=== PATIENT | male | born 1990 | race African-American/Black ===

== ENCOUNTER 2018-04-12 14:41 | Emergency (ER) | payer SELFPAY ==
[2018-04-12 14:49] VITALS: BP 130/70
--- NOTE | 2018-04-12 15:14 | RAD ---
Three-view right ankle radiographs 04/12/2018 CLINICAL HISTORY: Right ankle pain post fall. AP, lateral and oblique digital radiographs of the right ankle were obtained portably. The right ankle mortise is intact. No fracture or dislocation of the right ankle is seen. Soft tissue swelling is seen adjacent to the medial malleolus of the right ankle. IMPRESSION: No fracture or dislocation of the right ankle is seen. Electronically signed by: Abad Sylvester MD (04/12/2018 3:11 PM) [facility]
[2018-04-12] MEDS ORDERED: HYDROcodone/APAP 5/325MG 1 TAB TABLET PO ONE (15:15)
[2018-04-12] MEDS ORDERED: NAPR-683 PO (15:33)
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
== END 2018-04-12 15:43 | disposition home or self-care (01) ==
LOC: ER 14:41
DX: S93.401A Sprain of unspecified ligament of right ankle, initial encounter (principal); F12.10 Cannabis abuse, uncomplicated; W17.89XA Other fall from one level to another, initial encounter; Y93.39 Activity, other involving climbing, rappelling and jumping off; Y99.8 Other external cause status; Y92.89 Other specified places as the place of occurrence of the external cause
CPT/HCPCS: 73610; 99284; L4350

== ENCOUNTER 2019-07-03 17:25 | Emergency (ER) | payer SELFPAY ==
[~2019-07-03] VITALS: Ht 167.6 cm; Wt 61.2 kg
[~2019-07-03 17:25] MED LIST: NAPR-683 PO
[2019-07-03 17:34] VITALS: BP 136/84
[2019-07-03] MEDS ORDERED: diphenhydrAMINE 50 MG/ML VIAL IVP ONE (17:45)
[2019-07-03] MEDS ORDERED: methylPREDNISolone SOD SUCC PF 125 MG/2 ML VIAL. IV ONE (17:45)
--- NOTE | 2019-07-03 18:02 | PHYS DOC ---
Past History Past Medical History: No Pertinent History Past Surgical History: Other Alcohol Use: Occasionally Drug Use: Marijuana Adult General Chief Complaint Chief Complaint: SKIN RASH/ABSCESS HPI HPI 28-year-old male presents via ambulance for rash on his lower arms. The patient states it started 2 days ago, but is not really sure. He told the nurse it was a cheek, but does not tell me that it itches. He says he thinks his dog is involved somehow. He denies being scratched or bit. He tells me his dog is acting weird. He has noticed a few bumps on his bilateral forearms and is co ncerned it is allergic reaction. He is not allergic to anything that he knows of. No new exposures. Eyes fever or chills. Review of Systems Review of Systems Constitutional: Denies fever or chills [] Eyes: Denies change in visual acuity, redness, or eye pain [] HENT: Denies nasal congestion or sore throat [] Respiratory: Denies cough or shortness of breath [] Cardiovascular: No additional information not addressed in HPI [] GI: Denies abdominal pain, nausea, vomiting, bloody stools or diarrhea [] : Denies dysuria or hematuria [] Musculoskeletal: Denies back pain or joint pain [] Integument: Urticaria[] Neurologic: Denies headache, focal weakness or sensory changes [] Endocrine: Denies polyuria or polydipsia [] All other systems were reviewed and found to be within normal limits, except as documented in this note. Current Medications Current Medications Current Medications Medications (Trade) Dose Ordered Sig/Devorah Start Time Stop Time Status Last Admin Dose Admin Diphenhydramine HCl (Benadryl) 25 mg 1X ONCE 07/03/19 17:45 07/03/19 17:46 DC 07/03/19 17:47 25 MG Methylprednisolone Sodium Succinate (SOLU-Medrol 125MG VIAL) 125 mg 1X ONCE 07/03/19 17:45 07/03/19 17:46 DC 07/03/19 17:47 125 MG Allergies Allergies Allergies Coded Allergies Type Severity Reaction Last Updated Verified No Known Drug Allergies 05/18/15 No Physical Exam Physical Exam Constitutional: Well developed, well nourished, no acute distress, non-toxic appearance. [] HENT: Normocephalic, atraumatic, bilateral external ears normal, oropharynx moist, no oral exudates, nose normal. [] Eyes: PERRLA, EOMI, conjunctiva normal, no discharge. [] Neck: Normal range of motion, no tenderness, supple, no stridor. [] Cardiovascular:Heart rate regular rhythm, no murmur [] Lungs & Thorax: Bilateral breath sounds clear to auscultation [] Abdomen: Bowel sounds normal, soft, no tenderness, no masses, no pulsatile masses. [] Skin: Patient appears to have very mild urticaria on the right forearm and left forearm. I only see a few scattered areas. No confluent rash. No erythema or warmth.[] Back: No tenderness, no CVA tenderness. [] Extremities: No tenderness, no cyanosis, no clubbing, ROM intact, no edema. [] Neurologic: Alert and oriented X 3, normal motor function, normal sensory function, no focal deficits noted. [] Psychologic: Affect scattered, mood anxious[] Current Patient Data Vital Signs Vital Signs Date Time Temp Pulse Resp B/P (MAP) Pulse Ox O2 Delivery O2 Flow Rate FiO2 07/03/19 17:34 98.4 90 18 97 Room Air EKG EKG [] Radiology/Procedures Radiology/Procedures [] Course & Med Decision Making Course & Med Decision Making Pertinent Labs and Imaging studies reviewed. (See chart for details) The patient has had no difficulty breathing. I have given him 125 of Solu-Medrol IV as well as 25 mg of Benadryl IV. I do not see any other signs of allergic reaction. I believe the patient can be safely discharged. He continues to have pruritus he take Benadryl as needed every 6 hours. He is stable for discharge at this time. [] Dragon Disclaimer Dragon Disclaimer This electronic medical record was generated, in whole or in part, using a voice recognition dictation system. Departure Departure: Impression: Primary Impression: Urticaria Disposition: HOME, SELF-CARE Condition: STABLE Referrals: PCP,MIRANDA (PCP) Patient Instructions: Allergies, Generic Additional Instructions: If you continue to have itching, you can take 25 mg of Benadryl every 6 hours as needed. KAYA BECERRIL DO Jul 03, 2019 18:02
== END 2019-07-03 18:05 | disposition home or self-care (01) ==
LOC: ER 17:25
DX: L50.9 Urticaria, unspecified (principal)
CPT/HCPCS: 96374; 96375; 99284; J1200; J2930

== ENCOUNTER 2021-05-05 07:34 | Emergency (ER) | payer SELFPAY ==
[~2021-05-05] VITALS: Ht 167.6 cm; Wt 77.2 kg
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
[2021-05-05] MEDS ORDERED: DIPH,PERTUSS(ACELL),TET VAC/PF 0.5 ML SYRINGE. VAX IM ONE ×2 (08:56→09:00)
[2021-05-05 09:00] VITALS: BP 124/82
[2021-05-05] MEDS ORDERED: NEOMY/BACITR/POLYMYXIN OINT PACKET. TP ONE (09:00)
== END 2021-05-05 09:00 | disposition home or self-care (01) ==
LOC: ER 07:34
DX: S31.010A Laceration without foreign body of lower back and pelvis without penetration into retroperitoneum, initial encounter (principal); F12.10 Cannabis abuse, uncomplicated; Z59.0 Homelessness; X58.XXXA Exposure to other specified factors, initial encounter; Y93.89 Activity, other specified; Y92.89 Other specified places as the place of occurrence of the external cause; Y99.8 Other external cause status
CPT/HCPCS: 12001; 70450; 90471; 90715; 99284-25

== ENCOUNTER 2021-05-19 12:28 | Emergency (ER) | payer SELFPAY ==
[~2021-05-19] VITALS: Ht 167.6 cm; Wt 77.2 kg
[2021-05-19] MEDS ORDERED: LORazepam 1 MG TABLET PO ONE (12:45)
--- NOTE | 2021-05-19 12:56 | PHYS DOC ---
Past History Past Medical History: No Pertinent History (JURGEN WEST APRN) Past Surgical History: No Surgical History (JURGEN WEST APRN) Alcohol Use: Heavy Drug Use: Marijuana (JURGEN WEST APRN) Adult General Chief Complaint Chief Complaint: DIZZY/LIGHT HEADED HPI HPI Patient is a 30-year-old male who presents to the emergency department via EMS [employer] transport with a chief complaint of dizziness after a panic attack. Patient states he is homeless and has been staying in a local [facility]ci, was asked to leave last night, states he stayed with an acquaintance overnight and left at approximately 10 AM, has been walking around outside in the heat stating that his mind has been racing with thoughts of being kicked out, being homeless, having court dates coming up, being on probation, being unemployed, and receiving negative feedback. Patient states that this triggered a panic attack in which he called EMS for transfer to the emergency department. Patient states he has been seen by the local [facility] and was diagnosed with PTSD, patient reports he has an additional appointment on 22 May 2021 and also 25 May 2021 with the [facility] counselor for evaluation to start on medications. Patient denies chest pain, shortness of breath, fever or chills, chest congestion or nasal congestion. Patient denies nausea, vomiting, diarrhea or constipation. Patient denies loss of consciousness, or passing out. Patient reports cigarette smoking, occasional alcohol drinking, reports smoking marijuana this morning. Patient denies any other physical complaints or physical concerns. (JURGEN WEST APRN) Review of Systems Review of Systems 14 body systems of review of systems have been reviewed. See HPI for pertinent positives and negative responses, otherwise all other systems are negative, nonpertinent or noncontributory. (JURGEN WEST APRN) Current Medications Current Medications Current Medications Medications (Trade) Dose Ordered Sig/Devorah Start Time Stop Time Status Last Admin Dose Admin Lorazepam (Ativan) 1 mg 1X ONCE 05/19/21 12:45 05/19/21 12:46 DC (JURGEN WEST APRN) Allergies Allergies Allergies Coded Allergies Type Severity Reaction Last Updated Verified No Known Drug Allergies 05/05/21 No (JURGEN WEST APRN) Physical Exam Physical Exam Constitutional: Well developed, well nourished, no acute distress, non-toxic appearance. 30-year-old male in no apparent distress has 18-gauge IV with LR running at wide open started prior to arrival by EMS. HENT: Normocephalic, atraumatic. Eyes: Conjunctiva normal, no discharge. Neck: Normal range of motion, no tenderness, supple, no stridor. Cardiovascular:Heart rate regular rhythm, no murmur, heart sounds S1-S2 auscultation. Lungs & Thorax: Bilateral breath sounds clear to auscultation all lung blevins, no adventitious lung sounds appreciated. Abdomen: Bowel sounds normal, soft, no tenderness, no masses, no pulsatile masses. Skin: Warm, dry, no erythema, no rash. Back: No tenderness, no CVA tenderness. Extremities: No tenderness, no cyanosis, no clubbing, ROM intact, no edema. Distal cap refill less then 2 seconds, 2+ pedal pulses bilaterally, 2+ radial pulses, no paresthesias appreciated, no swelling appreciated, no deformities or areas of ecchymosis appreciated. Neurologic: Alert and oriented X 3, normal motor function, normal sensory function, no focal deficits noted. Orthostatic blood pressures performed by ED nurse, lying 136/84, heart rate 51, sitting 142/81, heart rate 57, patient reported he could not stand because he felt as if his legs would buckle. Psychologic: Affect normal, judgement normal, mood normal. Patient denies homicidal or suicidal ideation. (JURGEN WEST APRN) Current Patient Data Lab Results Laboratory Tests Test 05/19/21 13:07 05/19/21 13:55 White Blood Count 10.0 x10^3/uL Red Blood Count 4.05 x10^6/uL Hemoglobin 12.8 g/dL Hematocrit 38.2 % Mean Corpuscular Volume 94 fL Mean Corpuscular Hemoglobin 32 pg Mean Corpuscular Hemoglobin Concent 34 g/dL Red Cell Distribution Width 14.0 % Platelet Count 214 x10^3/uL Neutrophils (%) (Auto) 78 % Lymphocytes (%) (Auto) 14 % Monocytes (%) (Auto) 7 % Eosinophils (%) (Auto) 0 % Basophils (%) (Auto) 0 % Neutrophils # (Auto) 7.8 x10^3uL Lymphocytes # (Auto) 1.4 x10^3/uL Monocytes # (Auto) 0.7 x10^3/uL Eosinophils # (Auto) 0.0 x10^3/uL Basophils # (Auto) 0.0 x10^3/uL Sodium Level 142 mmol/L Potassium Level 4.3 mmol/L Chloride Level 106 mmol/L Carbon Dioxide Level 26 mmol/L Anion Gap 10 Blood Urea Nitrogen 11 mg/dL Creatinine 1.1 mg/dL Estimated GFR (Cockcroft-Gault) 94.5 BUN/Creatinine Ratio 10 Glucose Level 92 mg/dL Calcium Level 8.7 mg/dL Total Bilirubin 0.3 mg/dL Aspartate Amino Transf (AST/SGOT) 21 U/L Alanine Aminotransferase (ALT/SGPT) 28 U/L Alkaline Phosphatase 80 U/L Creatine Kinase 379 U/L Creatine Kinase MB (Mass) 1.3 ng/mL Creatine Kinase MB Relative Index 0.3 % Troponin I Quantitative < 0.017 ng/mL Total Protein 6.6 g/dL Albumin 4.1 g/dL Albumin/Globulin Ratio 1.6 Ethyl Alcohol Level < 10 mg/dL Urine Collection Type Unknown Urine Color Yellow Urine Clarity Clear Urine pH 6.0 Urine Specific [place] 1.020 Urine Protein Trace Urine Glucose (UA) Neg mg/dL Urine Ketones (Stick) Neg mg/dL Urine Blood Neg Urine Nitrite Neg Urine Bilirubin Neg Urine Urobilinogen Dipstick 1.0 mg/dL Urine Leukocyte Esterase Neg Urine RBC 0 /HPF Urine WBC 0 /HPF Urine Squamous Epithelial Cells Occ /LPF Urine Bacteria 0 /HPF Urine Opiates Screen Neg Urine Methadone Screen Neg Urine Barbiturates Neg Urine Phencyclidine Screen Neg Urine Amphetamine/Methamphetamine Neg Urine Benzodiazepines Screen Neg Urine Cocaine Screen Neg Urine Cannabinoids Screen Neg Urine Ethyl Alcohol Neg Current Medications Medications (Trade) Dose Ordered Sig/Devorah Route PRN Reason Start Time Stop Time Status Last Admin Dose Admin Lorazepam (Ativan) 1 mg 1X ONCE PO 05/19/21 12:45 05/19/21 12:46 DC 05/19/21 12:52 (JURGEN WEST APRN) EKG EKG EKG performed at 1248 by ED nursing staff shows a normal sinus rhythm with occasional PACs, heart rate 63 bpm, TN interval 0.130, QTc interval 0.404, no acute STEMI, no ACS, no acute ischemia appreciated, EKG interpreted by ED attending physician Dr. Azul. (JURGEN WEST APRN) Radiology/Procedures Radiology/Procedures PATIENT: JURGEN YUSUF TACCOUNT: [id number] : 1990 LOCATION: ER AGE: 30 SEX: M EXAM STATUS: REG ER ORD. PHYSICIAN: JURGEN WEST APRN REASON: dizzyness PROCEDURE: CHEST PA & LATERAL PA and lateral views of the chest. Comparison: None. Indication: Dizziness Findings: The heart size is normal. No pneumothorax or effusion. No air space or interstitial disease. The bony structures are intact. Impression: 1. No acute cardiopulmonary process. Electronically signed by: Luis Francois MD (05/19/2021 1:23 PM) [id number] DICTATED AND SIGNED BY: LUIS FRANCOIS MD DATE: 05/19/211321 CC: JURGEN WEST APRN; EMERGENCY,DEPARTMENT; PCP,NO ~MTH0 0 (JURGEN WEST APRN) Heart Score C/O Chest Pain: No Risk Factors: Risk Factors: DM, Current or recent (<one month) smoker, HTN, HLP, family history of CAD, obesity. Risk Scores: Risk Factors: DM, Current or recent (<one month) smoker, HTN, HLP, family history of CAD, obesity. (JUGREN WEST APRN) Course & Med Decision Making Course & Med Decision Making Pertinent Labs and Imaging studies reviewed. (See chart for details) 30-year-old male, vital signs reviewed, presents to the emergency department with complaints of panic attack and dizziness that started today while walking around in the heat since approximately 10 AM. Physical examination unremarkable, the patient is nontoxic in appearance, the patient is clinically sober, no smell of EtOH from breath, the patient's fingerstick blood glucose was 103 reported by transporting [employer]ien[employer] that was completed in route to the emergency department. Will order EKG, CBC, CMP, CK, troponin I, orthostatic blood pressures, urinalysis assay, urine drug screen. P.o. anxiety medication given. Patient case was reviewed by ED attending physician Dr. Azul, Dr. Azul evaluated and discharged patient from ED. (JURGEN WEST APRN) Course & Med Decision Making I oversaw on the above date of service of this patient. This patient was evaluated, examined, treated, and dispositioned from the emergency department by the mid-level practitioner. I reviewed case with ORE SMELTER and patient repeating certain aspects of history and physical examination and disclosed entirety of ER work-up with patient. During decision to discharge home with continued supportive care practices and close outpatient follow-up. I reviewed note and agree to findings, plan of care, and disposition as stated. Electronically signed, Kim Azul DO (KIM AZUL DO) Libra Disclaimer Dragon Disclaimer This electronic medical record was generated, in whole or in part, using a voice recognition dictation system. (JURGEN WEST APRN) Departure Departure: Impression: Primary Impression: Fatigue Disposition: HOME / SELF CARE / HOMELESS Condition: STABLE Referrals: PCP,NO (PCP) Additional Instructions: As discussed prior to ER departure, your vital signs, physical examination and comprehensive ER work-up was unremarkable for any emergent or surgical issues. We discussed your case at length and joint decision to defer any further diagnostic work-up and/or need for hospitalization. As discussed, please contact [facility] here in [place] located at [address] Their number is [phone]. In addition, you can also utilize the local crisis center for your mental health needs in addition to our ER. If you would like to follow-up with them in the outpatient setting, they are located at [address] and their phone number is [phone]. Please do not hesitate to come back here for repeat evaluation if any symptoms recur prior to outpatient follow-up. It was a pleasure to take care of you and I wish you the best going forward JURGEN WEST APRN May 19, 2021 12:56 KIM AZUL DO May 19, 2021 15:06
--- NOTE | 2021-05-19 13:25 | RAD ---
PA and lateral views of the chest. Comparison: None. Indication: Dizziness Findings: The heart size is normal. No pneumothorax or effusion. No air space or interstitial disease. The bon y structures are intact. Impression: 1. No acute cardiopulmonary process. Electronically signed by: Luis Francois MD (05/19/2021 1:23 PM) [id number]
[2021-05-19 13:45] LABS: BASO % 0 % (0-3); EOS % 0 % (0-3); HEMATOCRIT 38.2 % (39.0-53.0); HEMOGLOBIN 12.8 g/dL (13.0-17.5); LYMPH # 1.4 x10^3/uL (1.0-4.8); LYMPH % 14 % (24-48); MEAN CORPUSCULAR HEMOGLOBIN 32 pg (25-35); MEAN CORPUSCULAR HGB CONC 34 g/dL (31-37); MEAN CORPUSCULAR VOLUME 94 fL (79-100); MONO # 0.7 x10^3/uL (0.0-1.1); MONO % 7 % (0-9); NEUT # 7.8 x10^3uL (1.8-7.7); NEUT % 78 % (31-73); PLATELET COUNT 214 x10^3/uL (140-400); RED BLOOD COUNT 4.05 x10^6/uL (4.30-5.70)
[2021-05-19 14:01] LABS: ALBUMIN 4.1 g/dL (3.4-5.0); ALBUMIN/GLOBULIN RATIO 1.6 (1.0-1.7); CALCIUM 8.7 mg/dL (8.5-10.1); CREATININE 1.1 mg/dL (0.7-1.3); GFR 94.5; POTASSIUM 4.3 mmol/L (3.5-5.1); TOTAL BILIRUBIN 0.3 mg/dL (0.2-1.0); TOTAL PROTEIN 6.6 g/dL (6.4-8.2)
[2021-05-19 14:13] LABS: BILIRUBIN,URINE NEG (NEG); CLARITY,URINE CLEAR; COLOR,URINE YELLOW; GLUCOSE,URINE NEG (NEG)
[2021-05-19 14:14] LABS: NITRITE,URINE NEG (NEG)
[2021-05-19 14:15] LABS: BACTERIA,URINE 0 /HPF (0-FEW); RBC,URINE 0 /HPF (0-2); SQUAMOUS EPITHELIAL CELL,UR OCC /LPF; WBC,URINE 0 /HPF (0-4)
[2021-05-19 14:21] LABS: AMPHETAMINE/METHAMPHETAMINE NEG (NEG); BARBITURATES NEG (NEG); BENZODIAZEPINES NEG (NEG); CANNABINOIDS NEG (NEG); COCAINE NEG (NEG); METHADONE NEG (NEG); OPIATES NEG (NEG); PHENCYCLIDINE NEG (NEG)
[2021-05-19 14:36] VITALS: BP 133/80
--- NOTE | 2021-05-19 22:15 | EKG ---
[address] [address] Test Date: 2021-05-19 Test Time: 12:48:45 Pat Name: JURGEN YUSUF Department: Room: Gender: M Computer Repair Engineer: : 1990 Requested By: JURGEN WEST Order Number: [id number] Reading MD: Measurements Intervals [place] Rate: 63 P: 48 GA: 130 QRS: 41 QRSD: 86 T: 45 QT: 392 QTc: 404 Interpretive Statements SINUS RHYTHM ATRIAL PREMATURE COMPLEX(ES) OTHERWISE NORMAL ECG RI6.02 No previous ECG available for comparison
== END 2021-05-19 15:09 | disposition home or self-care (01) ==
LOC: ER 12:28
DX: R42 Dizziness and giddiness (principal); R53.83 Other fatigue; F12.10 Cannabis abuse, uncomplicated; Z59.0 Homelessness
CPT/HCPCS: 36415; 71046; 80053; 80307; 81001; 82553; 84484; 85025; 93005; 99285; G0480